=== PATIENT | male | born 1990 | race Caucasian/White ===

== ENCOUNTER 2018-03-01 17:13 | Emergency (ER) | payer OTHER ==
[2018-03-01 17:35] VITALS: BP 121/69
--- NOTE | 2018-03-01 18:33 | RAD ---
INDICATION: Left great toe pain COMPARISON: None. TECHNIQUE: 3 views of the left foot were obtained. FINDINGS: The adequately corticated bones are properly aligned. Joint spaces appear maintained. No fracture, dislocation or focal bony abnormality is seen. IMPRESSION: Normal radiograph of the left foot. If the patient's symptoms persist, follow-up imaging is recommended.
--- NOTE | 2018-03-01 20:08 | ED ---
Lower Extremity - HPI Summary HPI Summary: 27M male presents with left foot today. He states he was stepping off foot and felt a pop in his left great toe. He states he has pain with ambulation now. He is able to fully move his toe. He denies any numbness tingling. Denies any previous injury to the area. He has been taking ibuprofen for the pain. pain is worst with ambulation. he denies any previous injury to the area. no ankle pain or other injury. - History of Current Complaint Chief Complaint: EDExtremityLower Stated Complaint: LT FOOT INJURY Time Seen by Provider: 03/01/18 19:39 Pain Intensity: 8 - Allergies/Home Medications Allergies/Adverse Reactions: Allergies Allergy/AdvReac Type Severity Reaction Status Date / Time No Known Allergies Allergy Verified 05/29/16 19:52 Home Medications: Home Medications NK [No Home Medications Reported] 03/01/18 [History Confirmed 03/01/18] PMH/Surg Hx/FS Hx/Imm Hx Endocrine/Hematology History: Denies: Hx Anticoagulant Therapy, Hx Diabetes, Hx Thyroid Disease Cardiovascular History: Denies: Hx Congestive Heart Failure, Hx Deep Vein Thrombosis, Hx Hypertension , Hx Myocardial Infarction, Hx Pacemaker/ICD Respiratory History: Denies: Hx Asthma, Hx Chronic Obstructive Pulmonary Disease (COPD), Hx Lung Cancer, Hx Pneumonia, Hx Pulmonary Embolism GI History: Denies: Hx Gall Bladder Disease, Hx Gastrointestinal Bleed, Hx Ulcer, Hx Urosepsis History: Denies: Hx Kidney Stones, Hx Renal Disease Neurological History: Denies: Hx Dementia, Hx Migraine, Hx Seizures, Hx Transient Ischemic Attacks (TIA) Psychiatric History: Denies: Hx Anxiety, Hx Depression, Hx Schizophrenia, Hx Bipolar Disorder Infectious Disease History: No Infectious Disease History: Denies: Traveled Outside the [place] in Last 30 Days - Family History Known Family History: Positive: Diabetes Negative: Cardiac Disease, Hypertension - Social History Alcohol Use: Occasionally Substance Use Type: Reports: Marijuana Smoking Status (MU): Current Every Day Smoker Type: Cigarettes Amount Used/How Often: 1/2 PPD Review of Systems Negative: Fever Negative: Chest Pain Negative: Shortness Of Breath Positive: Myalgia - left great toe All Other Systems Reviewed And Are Negative: Yes Physical Exam Triage Information Reviewed: Yes Vital Signs On Initial Exam: Initial Vitals Temp Pulse Resp BP Pulse Ox 99.1 F 80 15 121/69 99 03/01/18 17:31 03/01/18 17:31 03/01/18 17:31 03/01/18 17:31 03/01/18 17:31 Vital Signs Reviewed: Yes Appearance: Positive: Well-Appearing Skin: Positive: Warm, Dry Head/Face: Positive: Normal Head/Face Inspection Eyes: Positive: Normal, Conjunctiva Clear Respiratory/Lung Sounds: Positive: Clear to Auscultation, Breath Sounds Present Cardiovascular: Positive: Normal, RRR Musculoskeletal: Positive: Strength/ROM Intact - LEFT foot, Other - Good pulses , tenderness over left great toe, cap refill less than 2 seconds, sensation grossly intact. Negative: Edema Left Neurological: Positive: Normal Psychiatric: Positive: Normal Diagnostics - Vital Signs Vital Signs Temp Pulse Resp BP Pulse Ox 03/01/18 17:31 99.1 F 80 15 121/69 99 - Laboratory Lab Statement: Any lab studies that have been ordered have been reviewed, and results considered in the medical decision making process. - Radiology foot Xray Interpretation: No Acute Changes Radiology Interpretation Completed By: Radiologist Lower Extremity Course/Dx - Course Course Of Treatment: 27M male presents with left foot today. He states he was stepping off foot and felt a pop in his left great toe. He states he has pain with ambulation now. He is able to fully move his toe. He denies any numbness tingling. Denies any previous injury to the area. He has been taking ibuprofen for the pain. pain is worst with ambulation. he denies any previous injury to the area. no ankle pain or other injury. On exam has tenderness over left great toe. Full range of motion. Neurovascular intact. X-ray normal. We'll treat as a sprain with rice. Patient understands agrees with plan. - Diagnoses Differential Diagnosis/HQI/PQRI: Positive: Fracture (Closed), Sprain, Strain Provider Diagnoses: Left foot pain Discharge - Sign-Out/Discharge Documenting (check all that apply): Discharge/Admit/Transfer - Discharge Plan Condition: Good Disposition: HOME Patient Education Materials: Foot Sprain (ED) Referrals: No Primary Care Phys,NOPCP [Primary Care Provider] - [facility] [Outside] Additional Instructions: Wear hard sole shoes Ice, elevate Take Tylenol or ibuprofen for pain every 6 hours as needed Follow up with primary if no improvement Return to ED if develop or any new or worsening symptoms - Billing Disposition and Condition Condition: GOOD Disposition: HOME
== END 2018-03-01 21:00 | disposition home or self-care (01) ==
LOC: ED 17:13
DX: M79.672 Pain in left foot (principal); F17.210 Nicotine dependence, cigarettes, uncomplicated
CPT/HCPCS: 99282

== ENCOUNTER 2019-02-25 20:09 | Emergency (ER) | payer OTHER ==
[2019-02-25 20:21] VITALS: BP 106/70
[2019-02-25] MEDS ORDERED: Acetaminophen TAB* 325 MG PO ONE (20:22)
--- NOTE | 2019-02-25 20:23 | UC ---
Respiratory Complaint HPI - HPI Summary HPI Summary: 28 yo male presents with cough. He tells me that about a month ago he developed a dry cough and decreased appetite with some nausea. These symptoms did not improve. About a week ago he developed a fever of around 100F and felt fatigued with worsening cough and body aches. He was taking ibuprofen and fever reduced and he felt better for a day or two, but yesterday and today his fever "felt very high" and he feels short of breath. He is a daily smoker. Denies any PMHx and does not take any medications. Notes a 10lb unintentional weight loss over the last month - History of Current Complaint Chief Complaint: UCGeneralIllness Stated Complaint: resp complaint Time Seen by Provider: 02/25/19 20:23 Hx Obtained From: Patient Severity Initially: Mild Severity Currently: Moderate Pain Intensity: 5 Pain Scale Used: 0-10 Numeric Character: Cough: Productive - Allergies/Home Medications Allergies/Adverse Reactions: Allergies Allergy/AdvReac Type Severity Reaction Status Date / Time No Known Allergies Allergy Verified 02/25/19 20:13 Home Medications: Home Medications Ibuprofen 400 mg PO ONCE PRN 02/25/19 [History Confirmed 02/25/19] PMH/Surg Hx/FS Hx/Imm Hx - Additional Past Medical History Additional PMH: None Other History Of: Negative For: HIV, Hepatitis B, Hepatitis C, Anticoagulant Therapy - Surgical History Surgical History: None - Family History Known Family History: Positive: Diabetes Negative: Cardiac Disease, Hypertension - Social History Lives: With Family Alcohol Use: None Substance Use Type: Marijuana Substance Use Comment - Amount & Last Used: occassionally- this am Smoking Status (MU): Current Every Day Smoker Type: Cigarettes Amount Used/How Often: 1/2 PPD Household Exposure Type: Cigarettes Review of Systems All Other Systems Reviewed And Are Negative: Yes Constitutional: Positive: Fever, Chills, Fatigue, Other - Body aches Skin: Positive: Negative Eyes: Positive: Negative ENT: Positive: Sore Throat Respiratory: Positive: Shortness Of Breath, Cough Cardiovascular: Positive: Negative Gastrointestinal: Positive: Nausea Genitourinary: Positive: Negative Neurovascular: Positive: Negative Neurological: Positive: Negative Psychological: Positive: Negative Physical Exam - Summary Physical Exam Summary: GENERAL: Ill appearing. Thin. Coughing throughout exam. SKIN: No rashes, sores, lesions, or open wounds. HEENT: Head: AT/NC Eyes: EOM intact. Conjunctiva clear without inflammation or discharge. Ears: Hearing grossly normal. TMs intact, no bulging, erythema, or edema. Nose: Nasal mucosa pink and moist. NTTP maxillary and frontal sinus. Throat: Posterior oropharynx without exudates, erythema, or tonsillar enlargement. Uvula midline. NECK: Supple. Nontender. No lymphadenopathy. CHEST: CTAB. No r/r/w. No accessory muscle use. Breathing comfortably and in no distress. CV: Tachycardic. Without m/r/g. Pulses intact. Cap refill <2seconds ABDOMEN: Soft. NTTP. No distention or guarding. No CVA tenderness. Bowel sounds present NEURO: Alert. PSYCH: Age appropriate behavior. Triage Information Reviewed: Yes Vital Signs: Initial Vital Signs Temp 103.3 F 02/25/19 20:14 Pulse 98 02/25/19 20:14 Resp 20 02/25/19 20:14 BP 106/70 02/25/19 20:14 Pulse Ox 98 02/25/19 20:14 Vital Signs Reviewed: Yes Respiratory Course/Dx - Course Course Of Treatment: POC strep and flu negative. CXR: No radiologist reading after 1800, therefore wet read by myself is negative for PNA. Pt was given tylenol 975mg po and zofran in the clinic. His temp remained at 102.5F and he is visibly shaking with chills and sweats. His exam is unremarkable. He was unable to produce a urine sample and admits he hasn't been urinating much recently. He is mildly tachycardic and mildly hypotensive. I am unsure the cause of his symptoms, but am most concerned for sepsis with unknown origin at this time. I discussed this with the pt and his brother and recommended transfer to the ED via ambulance with IVF, but pt declined and requested that his brother drive him. I called Iftikhar HAYNES in the ED to notify the ED of pt's condition and pending arrival. - Differential Dx/Diagnosis Provider Diagnosis: Fever, Cough, Fatigue, Nausea, Weight loss Discharge - Sign-Out/Discharge Documenting (check all that apply): Patient Departure All imaging exams completed and their final reports reviewed: No - Discharge Plan Condition: Fair Disposition: HOME-RECOMMEND TO ED Referrals: Travis Cano MD [Primary Care Provider] - Additional Instructions: Please go directly to the emergency room for your fever and symptoms without an identifiable cause. - Billing Disposition and Condition Condition: FAIR Disposition: Home-Recommend to ED
[2019-02-25] MEDS ORDERED: Ondansetron ODT TAB* 4 MG SL ONE (20:30)
[2019-02-25 20:58] LABS: Influenza A Molecular NEGATIVE (Negative); Influenza B Molecular NEGATIVE (Negative)
--- NOTE | 2019-02-26 14:15 | UC ---
- Progress Note Progress Note: RADIOLOGY REPORT REVIEWED. NO ACTIVE CARDIOPULMONARY DISEASE. NO CHANGE IN MGMT. Course/Dx - Diagnoses Provider Diagnoses: Fever, Cough, Fatigue, Nausea, Weight loss Discharge - Sign-Out/Discharge Documenting (check all that apply): Post-Discharge Follow Up All imaging exams completed and their final reports reviewed: Yes - Discharge Plan Condition: Fair Disposition: HOME-RECOMMEND TO ED Referrals: Travis Cano MD [Primary Care Provider] - Additional Instructions: Please go directly to the emergency room for your fever and symptoms without an identifiable cause. - Billing Disposition and Condition Condition: FAIR Disposition: Home-Recommend to ED
== END 2019-02-25 21:00 | disposition home health service (06) ==
LOC: UCEAST 20:09
DX: R50.9 Fever, unspecified (principal); R05 Cough; R53.83 Other fatigue; R11.0 Nausea; R63.4 Abnormal weight loss; R06.02 Shortness of breath; F17.210 Nicotine dependence, cigarettes, uncomplicated
CPT/HCPCS: 71046; 87651; 99202; A9270-GY; G0463

== ENCOUNTER 2019-02-25 21:19 | Observation (INO) | payer OTHER ==
[2019-02-25 21:57] LABS: Rapid Strep Molecular Negative (Negative)
[2019-02-25 22:04] LABS: Influenza A Molecular NEGATIVE (Negative); Influenza B Molecular NEGATIVE (Negative)
--- NOTE | 2019-02-25 22:13 | ED ---
Complex/Multi-Sys Presentation - HPI Summary HPI Summary: This patient is a 28 year old M presenting to ED accompanied by family with a chief complaint of CP and SOB since [employer]. The patient rates the pain 5/10 in severity. Symptoms aggravated by deep breaths. Symptoms alleviated by nothing. Last took 3 Tylenol about 1 hour ago. Patient reports fever (103.5F tonight and 100F 1 week ago), N/V (x3 episodes), rhinorrhea, sore throat, and slight MARQUEZ. The patient has been having a cold for the last month. Patient denies diarrhea. - History Of Current Complaint Chief Complaint: EDFluSymptoms Time Seen by Provider: 02/25/19 22:04 Hx Obtained From: Patient Onset/Duration: Sudden Onset, Lasting Hours, Still Present Severity Initially: Moderate - 5/10 Aggravating Factor(s): deep breaths Alleviating Factor(s): nothing Associated Signs And Symptoms: Positive: Headache, SOB, Chest Pain, Nausea, Vomiting, Fever, Other - sore throat, rhinorrhea. Negative: Diarrhea - Allergies/Home Medications Allergies/Adverse Reactions: Allergies Allergy/AdvReac Type Severity Reaction Status Date / Time No Known Allergies Allergy Verified 02/25/19 22:55 PMH/Surg Hx/FS Hx/Imm Hx Endocrine/Hematology History: Denies: Hx Anticoagulant Therapy, Hx Diabetes, Hx Thyroid Disease Cardiovascular History: Denies: Hx Congestive Heart Failure, Hx Deep Vein Thrombosis, Hx Hypertension , Hx Myocardial Infarction, Hx Pacemaker/ICD Respiratory History: Denies: Hx Asthma, Hx Chronic Obstructive Pulmonary Disease (COPD), Hx Lung Cancer, Hx Pneumonia, Hx Pulmonary Embolism GI History: Denies: Hx Gall Bladder Disease, Hx Gastrointestinal Bleed, Hx Ulcer, Hx Urosepsis History: Denies: Hx Kidney Stones, Hx Renal Disease Neurological History: Denies: Hx Dementia, Hx Migraine, Hx Seizures, Hx Transient Ischemic Attacks (TIA) Psychiatric History: Denies: Hx Anxiety, Hx Depression, Hx Schizophrenia, Hx Bipolar Disorder Infectious Disease History: No Infectious Disease History: Denies: Traveled Outside the [place] in Last 30 Days - Family History Known Family History: Positive: Diabetes Negative: Cardiac Disease, Hypertension - Social History Alcohol Use: None Substance Use Type: Reports: Marijuana Substance Use Comment - Amount & Last Used: occassionally- this am Smoking Status (MU): Current Every Day Smoker Type: Cigarettes Amount Used/How Often: 1/2 PPD Review of Systems Positive: Fever Positive: Sore Throat, Other - rhinorrhea Positive: Chest Pain Positive: Shortness Of Breath Positive: Vomiting, Nausea. Negative: Diarrhea Positive: Headache All Other Systems Reviewed And Are Negative: Yes Physical Exam - Summary Physical Exam Summary: VITAL SIGNS: Reviewed. GENERAL: Patient is a well-developed and nourished MALE who is lying comfortable in the stretcher. Patient is not in any acute respiratory distress. HEAD AND FACE: No signs of trauma. No ecchymosis, hematomas or skull depressions. No sinus tenderness. EYES: PERRLA, EOMI x 2, No injected conjunctiva, no nystagmus. EARS: Hearing grossly intact. Ear canals and tympanic membranes are within normal limits. MOUTH: Oropharynx within normal limits. NECK: Supple, trachea is midline, no adenopathy, no JVD, no carotid bruit, no c- spine tenderness, neck with full ROM CHEST: Symmetric, no tenderness at palpation LUNGS: Clear to auscultation bilaterally. No wheezing or crackles. CVS: Regular rate and rhythm, S1 and S2 present, no murmurs or gallops appreciated. ABDOMEN: Soft, non-tender. No signs of distention. No rebound no guarding, and no masses palpated. Bowel sounds are normal. EXTREMITIES: FROM in all major joints, no edema, no cyanosis or clubbing. NEURO: Alert and oriented x 3. No acute neurological deficits. Speech is normal and follows commands. SKIN: Dry and warm Triage Information Reviewed: Yes Vital Signs On Initial Exam: Initial Vitals Temp Pulse Resp BP Pulse Ox 102.6 F 87 20 112/68 96 02/25/19 21:28 02/25/19 21:28 02/25/19 21:28 02/25/19 21:28 02/25/19 21:28 Vital Signs Reviewed: Yes Procedures - Lumbar Puncture spinal tap Position: Sitting Aseptic Technique: Local Anesthesia, Lidocaine - with epi Anesthesia Used: 2.0% Lido Spinal Needle Used: 20 Gauge Lumbar Puncture Note: L4-L5, 4 tubes of spinal fluid that was clear. Diagnostics - Vital Signs Vital Signs Temp Pulse Resp BP Pulse Ox 02/25/19 21:28 102.6 F 87 20 112/68 96 - Laboratory Lab Results: Lab Results 02/25/19 02/25/19 Range/Units 21:33 21:33 Influenza A (Rapid) Negative (Negative) Influenza B (Rapid) Negative (Negative) Group A Strep Rapid Negative (Negative) Result Diagrams: 02/26/19 03:35 02/26/19 03:35 Lab Statement: Any lab studies that have been ordered have been reviewed, and results considered in the medical decision making process. - Radiology CXR Radiology Interpretation Completed By: ED Physician Summary of Radiographic Findings: CXR done as an outpatient reveals no acute processes. - EKG 2203 Cardiac Rate: NL - 84 BPM EKG Rhythm: Sinus Rhythm Summary of EKG Findings: NSR at 84 BPM, normal axis, normal interval, and no ischemic changes. Re-Evaluation - Re-Evaluation First Eval Re-Evaluation Time: 23:25 Comment: Discussed results with the patient. Complex Multi-Symp Course/Dx Assessment/Plan: This patient is a 28 year old M presenting to ED accompanied by family with a chief complaint of CP and SOB since [employer]. CXR done as an outpatient reveals no acute processes. EKG reveals NSR at 84 BPM, normal axis, normal interval, and no ischemic changes. Spinal tap was done. In the ED course the patient was given Sodium Chloride IV, Reglan IV, Levaquin IV, Ibuprofen PO and Lidocaine INJ. Bloodwork, chemistries and serology obtained. Case discussed with Dr. Mccarthy, hospitalist, who accepted the patient for admission. The patient is agreeable with this plan. - Diagnoses Provider Diagnoses: Pneumonia - Physician Notifications Discussed Care Of Patient With: Claudia Mccarthy Time Discussed With Above Provider: 01:43 Instructed by Provider To: Admit As Inpatient Discharge - Sign-Out/Discharge Documenting (check all that apply): Patient Departure - admit Patient Received Moderate/Deep Sedation with Procedure: No - Discharge Plan Condition: Fair Disposition: ADMITTED TO [facility] - Billing Disposition and Condition Condition: FAIR Disposition: Admitted to [facility] - Attestation Statements Document Initiated by Scribe: Yes Documenting Scribe: Simón Phillips Provider For Whom Scribe is Documenting (Include Credential): Fawn Vivar MD Scribe Attestation: Simón Marie, scribed for Fawn Vivar MD on 02/26/19 at 0638. Scribe Documentation Reviewed: Yes Provider Attestation: The documentation as recorded by the scribe, Simón Phillips accurately reflects the service I personally performed and the decisions made by me, Fawn Vivar MD Status of Dami Document: Viewed
[2019-02-25] MEDS ORDERED: NS 0.9% 1000 ML** 2,000 ML IV ONE (22:17)
[2019-02-25] MEDS ORDERED: Ibuprofen TAB* 600 MG PO ONE (22:18)
[2019-02-25] MEDS ORDERED: Metoclopramide IV* 5 MG/ML 2 ML VIAL IV SLOW PU ONE (22:18)
[2019-02-25 22:52] LABS: Hematocrit 43 % (42-52); Hemoglobin 14.6 g/dL (14.0-18.0); Mean Corpuscular HGB Conc 34 g/dL (31-36); Mean Corpuscular Hemoglobin 30 pg (27-31); Mean Corpuscular Volume 86 fL (80-94); Red Blood Count 4.95 10^6 /uL (4.18-5.48); Red Cell Distribution Width 12 % (10.5-15); White Blood Count 18.6 10^3/uL (3.5-10.8)
[2019-02-25 22:53] LABS: ABS Lymphocytes 0.4 10^3/ul (1.0-4.8); ABS Monocytes 0.4 10^3/ul (0-0.8); ABS Neutrophils 17.7 10^3/ul (1.5-7.7); ABS Nucleated RBC 0.1 10^3/ul; Eosinophil % 0.2 %; Lymphocyte % 2.4 %; Mean Platelet Volume 8.1 fL (7.4-10.4); Nucleated Red Blood Cells % 0.5; Platelet Count 282 10^3/uL (150-450)
[2019-02-25 22:57] LABS: Activated Partial Thrombo Time 29.3 seconds (26.0-36.3); INR 1.12 (0.82-1.09)
[2019-02-25 23:05] LABS: Albumin 4.3 g/dL (3.2-5.2); Albumin/Globulin Ratio 1.2 (1-3); BUN/Creatinine Ratio 10.6 (8-20); C Reactive Protein 14.55 mg/L (<8.01); Calcium 9.4 mg/dL (8.6-10.3); EGFR African American 93.5 (>60); EGFR Non-African American 77.3 (>60); Globulin 3.6 g/dL (2-4); Potassium 3.8 mmol/L (3.5-5.0); Total Bilirubin 0.6 mg/dL (0.2-1.0); Total Protein 7.9 g/dL (6.4-8.9)
[2019-02-25] MEDS ORDERED: NS 0.9% 1000 ML** 1,000 ML IV ONE (23:31)
[2019-02-25] MEDS ORDERED: Iohexol 300* (CONTRAST) 10 ML SDV IV ONE (23:37)
[2019-02-25] MEDS ORDERED: Lidocaine 2% EPI 1:200000 MPF*10-20 ML VIAL ONE (23:37)
[2019-02-25] MEDS ORDERED: Lidocaine 2% EPI 1:200000 MPF*10-20 ML VIAL INJ ONE (23:39)
[2019-02-25 23:58] LABS: Body Fluid Source Cerebral Spinal
[2019-02-26 00:35] LABS: CSF Glucose 61 mg/dL (40-70)
[2019-02-26] MEDS ORDERED: Levofloxacin 750 MG IVPREMIX(* 750 MG/150 ML BAG IVPB ONE (01:40)
[2019-02-26] MEDS ORDERED: Ketorolac INJ* 30 MG/ML 1 ML VIAL IV PUSH ONE (03:09)
[2019-02-26] MEDS ORDERED: Nicotine PATCH 14 MG/24 HR* PATCH TRANSDERM ONE (03:13)
[2019-02-26] MEDS ORDERED: Ondansetron INJ* 2 MG/ML VIAL IV ONE (03:19)
[2019-02-26] MEDS ORDERED: Morphine 4 MG/ML VIAL (1 ml) 4 MG/ML VIAL IV ONE (03:19)
[2019-02-26] MEDS ORDERED: Benzonatate CAP* 100 MG PO PRN (03:33)
[2019-02-26 03:35] LABS: Troponin I 0.01 ng/mL (<0.04)
[2019-02-26] MEDS ORDERED: Al Hydrox/Mg Hydrox/Simet LIQ* 30 ML UDC PO PRN (04:06)
[2019-02-26] MEDS ORDERED: oxyCODONE/Acetamin 5/325 MG* TAB PO PRN (04:06)
[2019-02-26] MEDS ORDERED: Docusate CAP* 100 MG PO PRN (04:06)
[2019-02-26] MEDS ORDERED: Senna TAB PO PRN (04:06)
[2019-02-26] MEDS ORDERED: Acetaminophen TAB* 325 MG PO PRN (04:06)
[2019-02-26] MEDS ORDERED: Ondansetron INJ* 2 MG/ML VIAL IV PRN (04:06)
[2019-02-26 04:42] LABS: Hematocrit 41 % (42-52); Hemoglobin 13.8 g/dL (14.0-18.0); Mean Corpuscular HGB Conc 34 g/dL (31-36); Mean Corpuscular Hemoglobin 30 pg (27-31); Mean Corpuscular Volume 88 fL (80-94); Mean Platelet Volume 8.8 fL (7.4-10.4); Platelet Count 263 10^3/uL (150-450); Red Blood Count 4.63 10^6 /uL (4.18-5.48); Red Cell Distribution Width 13 % (10.5-15); White Blood Count 25.2 10^3/uL (3.5-10.8)
[2019-02-26 04:52] LABS: BUN/Creatinine Ratio 11.7 (8-20); Calcium 8.1 mg/dL (8.6-10.3); Potassium 3.9 mmol/L (3.5-5.0)
[2019-02-26 04:54] LABS: Erythrocyte Sed Rate 30 mm/Hr (0-14)
[2019-02-26] MEDS: Nicotine PATCH 14 MG/24 HR* PATCH TRANSDERM SCH ×2 (05:00→08:25)
--- NOTE | 2019-02-26 05:13 | HP ---
CC: Dr. Cano * HISTORY AND PHYSICAL: DATE OF ADMISSION: 02/26/19 TIME OF EVALUATION: 0300 PRIMARY CARE PHYSICIAN: Dr. Cano. CHIEF COMPLAINT: Cough and shortness of breath with chest pain. HISTORY OF PRESENT ILLNESS: This is a 28-year-old male with an unremarkable past medical history, who presented to the emergency room from urgent care for concern for sepsis. The patient states he has had a productive cough over the past month. Today, he had high fever, shortness of breath, and left-sided chest pain. He states last week he had a low-grade temp around 100 and then it resolved on its own. He was nauseous and vomiting earlier today. He denies any diarrhea. No abdominal pain or urinary symptoms. He has an exposure to sick contacts. He has several nephews who live with him that have been sick with cold. He has a chronic lower extremity rash on the left leg that is not painful or itchy. He denies any long car rides or plane rides. No headache. He does have some congestion and sore throat, otherwise review of systems is negative. In the emergency room, the patient had labs and imaging, was given 3 L of normal saline, Levaquin 750 mg, Motrin 600 mg, and referred to the hospitalist service for further evaluation. The patient also denies any night sweats. He admits to a 10-pound weight loss over the past month due to anorexia. PAST MEDICAL HISTORY: 1. Tobacco use. 2. Marijuana use. MEDICATIONS: None. ALLERGIES: No known drug allergies. FAMILY HISTORY: Parents are alive and healthy. 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 He lives with his parents, 2 siblings, and several nieces and nephews. He admits to smoking, half a pack per day for the past few years. He also uses marijuana daily. No other illicit drug use. No recent alcohol use. CODE STATUS: Full code. REVIEW OF SYSTEMS: A 14-point review of systems as mentioned in the HPI, otherwise negative. PHYSICAL EXAMINATION GENERAL: Mildly ill appearing and uncomfortable due to left-sided chest pain. VITAL SIGNS: T-Max was 103.1, pulse rate 76, respiratory rate 26, oxygen saturation 97% on room air, blood pressure 97/50. HEENT: Head: Normocephalic. Pupils equal and reactive. Mild conjunctival injection. Oropharynx: Mucous membranes dry. Lips are dry. No significant posterior erythema or exudates. NECK: Supple. No adenopathy. RESPIRATORY: Diminished breath sounds. Poor aeration. No wheezes, rhonchi, rales or increased work of breathing. CARDIAC: Normal sinus with a systolic murmur heard throughout. ABDOMEN: Positive bowel sounds. Soft, nontender, nondistended. EXTREMITIES: No clubbing, cyanosis, or edema. +2 DP. NEUROLOGIC: Alert and oriented x3. No gross focal neurologic deficits. LABORATORY DATA: White count 18.6, hemoglobin 14.6, hematocrit 43, platelets 282. INR is 1.12. Sodium 136, potassium 3.8, chloride 103, bicarb 21, BUN 12, creatinine 1.13. Lactic 0.8. CRP is 14.55. LP of 0 white cells, glucose 61, protein 28. Negative mono. Negative flu. Negative group B strep. RADIOGRAPHIC STUDIES: Chest, abdomen and pelvis CT: No acute findings on the abdomen or pelvis. Left lower lobe consolidation likely representing pneumonia , suggest radiographic followup to ensure resolution. Tiny ground-glass foci in right lower lobe may represent additional foci of infection versus inflammation. A 3-mm right upper lobe nodule. EKG: Normal sinus rhythm. ASSESSMENT: This is a 28-year-old male with an unremarkable past medical history, who presents to the emergency room from urgent care for persistent cough, now fever, shortness of breath, and chest pain. The patient with left lower lobe pneumonia on imaging. CRP is not significantly elevated but he does have an elevated white count. I am concerned also for pulmonary embolism due to how uncomfortable he is with left-sided pleuritic pain that may be contributed by pneumonia, but the pain does seem out of proportion to having pneumonia. I am adding on troponin and D-dimer. If either of these are elevated, we will get a CTA of the chest and anticoagulate him if it is positive. We will continue him on Levaquin, obtain a sputum culture, continue IV fluids. We will check a sed rate and do a trial of albuterol nebs to help with the cough. No active wheezing. Chronic medical problems. Tobacco use, placed him on a nicotine patch. FEN: Regular diet and IV fluids. DVT prophylaxis: Awaiting workup for PE. If negative, the patient is low risk , we will encourage ambulation. Code status: Full code. PATIENT TIME: Greater than 45 minutes was spent doing the history and physical , more than half the time spent in direct patient contact. [id number]/[facility] #: [id number] LOUISA
[2019-02-26 05:16] LABS: ABS Lymphocytes 0.7 10^3/ul (1.0-4.8); ABS Monocytes 0.2 10^3/ul (0-0.8); ABS Neutrophils 24.2 10^3/ul (1.5-7.7); Eosinophil % 0.1 %; Lymphocyte % 2.7 %
[2019-02-26] MEDS: Morphine INJ* 2 MG/ML 1 ML SYRINGE (TWO MG - NEW SYRINGE VERSION) IV PRN ×3 (05:42→17:55)
[2019-02-26] MEDS: Lactated Ringers 1000 ML Bag* 1,000 ML IV SCH ×3 (05:45→21:52)
[2019-02-26] MEDS: Ketorolac INJ* 15 MG/ML 1 ML VIAL IV PUSH PRN ×2 (08:26→20:24)
--- NOTE | 2019-02-26 20:12 | PN ---
Subjective Date of Service: 02/26/19 Interval History: Patient reports he continues to feel fatigued, has left sided chest pain with cough, and continues to cough. Denies sob, wheezing, nausea, vomiting, diarrhea. He reports he has had this cough for about one month prior to presentation to ED. In addition he noted a low grade fever 2 wks ago. No sick contact. Does smoke and work in factory. Does use marijuana. Objective Active Medications: Acetaminophen (Tylenol Tab*) 650 mg PO Q4H PRN PRN Reason: FEVER/PAIN Al Hydrox/Mg Hydrox/Simethicone (Maalox Plus*) 30 ml PO Q6H PRN PRN Reason: INDIGESTION Benzonatate (Tessalon Cap*) 200 mg PO TID PRN PRN Reason: COUGH Last Admin: 02/26/19 12:04 Dose: 200 mg Docusate Sodium (Colace Cap*) 100 mg PO BID PRN PRN Reason: CONSTIPATION Lactated Ringer's (Lactated Ringers 1000 Ml Bag*) 1,000 mls @ 150 mls/hr IV PER RATE [facility] Last Admin: 02/26/19 12:04 Dose: 150 mls/hr Levofloxacin/Dextrose (Levaquin 750 Mg Ivpremix(*)) 750 mg in 150 mls @ 100 mls /hr IVPB Q24H [facility] Ketorolac Tromethamine (Toradol Inj*) 15 mg IV PUSH Q6H PRN PRN Reason: PAIN Last Admin: 02/26/19 08:26 Dose: 15 mg Morphine Sulfate (Morphine Inj (Syringe))*) 2 mg IV Q4H PRN PRN Reason: PAIN - MILD Last Admin: 02/26/19 17:55 Dose: 2 mg Nicotine (Nicotine Patch 14 Mg/24 Hr*) 1 patch TRANSDERM DAILY [facility] Last Admin: 02/26/19 08:25 Dose: 1 patch Ondansetron HCl (Zofran Inj*) 4 mg IV Q4H PRN PRN Reason: NAUSEA/VOMITING Oxycodone/Acetaminophen (Percocet 5/325 Tab*) 1 tab PO Q4H PRN PRN Reason: Pain Pharmacy Profile Note (Nicotine Patch Removal Note*) 1 note FOLLOW UP 2100 [facility] Senna (Senokot Tab*) 1 tab PO BID PRN PRN Reason: CONSTIPATION Vital Signs - 8 hr 02/26/19 02/26/19 02/26/19 14:58 17:00 17:55 Temperature 98.6 F Pulse Rate 86 Respiratory 16 20 18 Rate Blood Pressure (mmHg) O2 Sat by Pulse 100 Oximetry 02/26/19 18:05 Temperature Pulse Rate Respiratory Rate Blood Pressure 128/68 (mmHg) O2 Sat by Pulse Oximetry Oxygen Devices in Use Now: None Appearance: Comfortable, NAD Ears/Nose/Mouth/Throat: Clear Oropharnyx, Mucous Membranes Moist Neck: NL Appearance and Movements; NL JVP Respiratory: Symmetrical Chest Expansion and Respiratory Effort, Clear to Auscultation Cardiovascular: NL Sounds; No Murmurs; No JVD, RRR, No Edema Abdominal: NL Sounds; No Tenderness; No Distention Lymphatic: No Cervical Adenopathy Extremities: No Edema Skin: No Rash or Ulcers Neurological: Alert and Oriented x 3 Nutrition: Taking PO's Result Diagrams: 02/26/19 03:35 02/26/19 03:35 Additional Lab and Data: Lab Results 02/25/19 02/25/19 Range/Units 21:33 21:33 Influenza A (Rapid) Negative (Negative) Influenza B (Rapid) Negative (Negative) Group A Strep Rapid Negative (Negative) Laboratory Results - last 24 hr 02/25/19 02/25/19 02/25/19 21:33 21:33 22:18 WBC 18.6 H RBC 4.95 Hgb 14.6 Hct 43 MCV 86 MCH 30 MCHC 34 RDW 12 Plt Count 282 MPV 8.1 Neut % (Auto) 95.1 Lymph % (Auto) 2.4 Page % (Auto) 2.2 Eos % (Auto) 0.2 Baso % (Auto) 0.1 Absolute Neuts (auto) 17.7 H Absolute Lymphs (auto) 0.4 L Absolute Monos (auto) 0.4 Absolute Eos (auto) 0.0 Absolute Basos (auto) 0.0 Absolute Nucleated RBC 0.1 Nucleated RBC % 0.5 ESR 30 H INR (Anticoag Therapy) APTT D-Dimer, Quantitative Sodium Potassium Chloride Carbon Dioxide Anion Gap BUN Creatinine Est GFR ( Amer) Est GFR (Non-Af Amer) BUN/Creatinine Ratio Glucose Lactic Acid Calcium Total Bilirubin AST ALT Alkaline Phosphatase Troponin I C-Reactive Protein Total Protein Albumin Globulin Albumin/Globulin Ratio Fluid Source Fluid Volume Fluid Color Fluid Appearance Fluid WBC Fluid RBC Fluid Tot Cell Count CSF Cell Count Tube # CSF Glucose CSF Total Protein Monoscreen Negative Influenza A (Rapid) Negative Influenza B (Rapid) Negative Group A Strep Rapid Negative 02/25/19 02/25/19 02/25/19 22:18 22:18 22:18 WBC RBC Hgb Hct MCV MCH MCHC RDW Plt Count MPV Neut % (Auto) Lymph % (Auto) Page % (Auto) Eos % (Auto) Baso % (Auto) Absolute Neuts (auto) Absolute Lymphs (auto) Absolute Monos (auto) Absolute Eos (auto) Absolute Basos (auto) Absolute Nucleated RBC Nucleated RBC % ESR INR (Anticoag Therapy) 1.12 H APTT 29.3 D-Dimer, Quantitative Sodium 136 Potassium 3.8 Chloride 103 Carbon Dioxide 21 L Anion Gap 12 H BUN 12 Creatinine 1.13 Est GFR ( Amer) 93.5 Est GFR (Non-Af Amer) 77.3 BUN/Creatinine Ratio 10.6 Glucose 92 Lactic Acid 0.8 Calcium 9.4 Total Bilirubin 0.60 AST 15 ALT 10 Alkaline Phosphatase 71 Troponin I 0.01 C-Reactive Protein 14.55 H Total Protein 7.9 Albumin 4.3 Globulin 3.6 Albumin/Globulin Ratio 1.2 Fluid Source Fluid Volume Fluid Color Fluid Appearance Fluid WBC Fluid RBC Fluid Tot Cell Count CSF Cell Count Tube # CSF Glucose CSF Total Protein Monoscreen Influenza A (Rapid) Influenza B (Rapid) Group A Strep Rapid 02/25/19 02/25/19 02/26/19 23:48 23:48 03:35 WBC 25.2 H RBC 4.63 Hgb 13.8 L Hct 41 L MCV 88 MCH 30 MCHC 34 RDW 13 Plt Count 263 MPV 8.8 Neut % (Auto) 96.1 Lymph % (Auto) 2.7 Page % (Auto) 1.0 Eos % (Auto) 0.1 Baso % (Auto) 0.1 Absolute Neuts (auto) 24.2 H Absolute Lymphs (auto) 0.7 L Absolute Monos (auto) 0.2 Absolute Eos (auto) 0.0 Absolute Basos (auto) 0.0 Absolute Nucleated RBC 0.0 Nucleated RBC % 0.0 ESR INR (Anticoag Therapy) APTT D-Dimer, Quantitative Sodium Potassium Chloride Carbon Dioxide Anion Gap BUN Creatinine Est GFR ( Amer) Est GFR (Non-Af Amer) BUN/Creatinine Ratio Glucose Lactic Acid Calcium Total Bilirubin AST ALT Alkaline Phosphatase Troponin I C-Reactive Protein Total Protein Albumin Globulin Albumin/Globulin Ratio Fluid Source Cerebral spinal Fluid Volume 8 Fluid Color Colorless Fluid Appearance Clear Fluid WBC 0 Fluid RBC 0 Fluid Tot Cell Count CSF Cell Count Tube # 4 CSF Glucose 61 CSF Total Protein 28 Monoscreen Influenza A (Rapid) Influenza B (Rapid) Group A Strep Rapid 02/26/19 02/26/19 03:35 03:36 WBC RBC Hgb Hct MCV MCH MCHC RDW Plt Count MPV Neut % (Auto) Lymph % (Auto) Page % (Auto) Eos % (Auto) Baso % (Auto) Absolute Neuts (auto) Absolute Lymphs (auto) Absolute Monos (auto) Absolute Eos (auto) Absolute Basos (auto) Absolute Nucleated RBC Nucleated RBC % ESR INR (Anticoag Therapy) APTT D-Dimer, Quantitative < 200 Sodium 139 Potassium 3.9 Chloride 110 Carbon Dioxide 22 Anion Gap 7 BUN 12 Creatinine 1.03 Est GFR ( Amer) 104.0 Est GFR (Non-Af Amer) 86.0 BUN/Creatinine Ratio 11.7 Glucose 104 H Lactic Acid Calcium 8.1 L Total Bilirubin AST ALT Alkaline Phosphatase Troponin I C-Reactive Protein Total Protein Albumin Globulin Albumin/Globulin Ratio Fluid Source Fluid Volume Fluid Color Fluid Appearance Fluid WBC Fluid RBC Fluid Tot Cell Count CSF Cell Count Tube # CSF Glucose CSF Total Protein Monoscreen Influenza A (Rapid) Influenza B (Rapid) Group A Strep Rapid Microbiology and Other Data: Microbiology 02/25/19 23:48 CSF Gram Stain (Tube 3) - Final Cerebral Spinal Fluid CSF Culture - Preliminary No Growth Day 1 02/26/19 06:00 Gram Stain - Final Sputum Expectorated Assess/Plan/Problems-Billing Assessment: 28 yr old male with unremarkable past medication hx who was admitted for pneumonia - Patient Problems (1) Left-sided chest pain Comment: - Trop and DDimer negative. - Pain worse with cough. - Suspected secondary to cough and pneumonia. - Cont prn pain medications (2) Pneumonia Comment: - Left lower lobe consolidation - Cont Levaquin and IVF - Repeat imaging for resolution (3) Lung nodule Comment: - 3 mm lung nodule seen on right. Will need outpatient follow imaging as patient has risk factor due to smoking (4) Tobacco abuse Comment: - Discussed cessation - Cont nicotine patch (5) Marijuana abuse Comment: - Smokes marijuana daily - Discussed risk associated with lung disease (6) DVT prophylaxis Comment: - Ambulation encouraged Attending: Robin Dill
[2019-02-26] MEDS ORDERED: Nicotine Patch Removal NOTE FOLLOW UP SCH (21:00)
[2019-02-26 21:36] LABS: Urine Appearance Clear; Urine Bilirubin Negative (Negative); Urine Blood Negative (Negative); Urine Color Yellow; Urine Glucose Negative (Negative); Urine Ketones Negative (Negative); Urine Nitrite Negative (Negative); Urine Protein Negative (Negative); Urine Specific Gravity 1.004 (1.010-1.030); Urine Urobilinogen Negative (Negative)
[2019-02-27] MEDS ORDERED: Levofloxacin 750 MG IVPREMIX(* 750 MG/150 ML BAG IVPB SCH (03:00)
[2019-02-27 07:23] LABS: ABS Eosinophils 0.1 10^3/ul (0-0.6); ABS Lymphocytes 1.1 10^3/ul (1.0-4.8); ABS Monocytes 0.7 10^3/ul (0-0.8); ABS Neutrophils 19.5 10^3/ul (1.5-7.7); Eosinophil % 0.5 %; Hematocrit 35 % (42-52); Hemoglobin 12.2 g/dL (14.0-18.0); Mean Corpuscular HGB Conc 35 g/dL (31-36); Mean Corpuscular Hemoglobin 30 pg (27-31); Mean Corpuscular Volume 86 fL (80-94); Mean Platelet Volume 8.6 fL (7.4-10.4); Platelet Count 203 10^3/uL (150-450); Red Blood Count 4.08 10^6 /uL (4.18-5.48); Red Cell Distribution Width 13 % (10.5-15); White Blood Count 21.4 10^3/uL (3.5-10.8)
[2019-02-27] MEDS: Lactated Ringers 1000 ML Bag* 1,000 ML IV SCH (07:40)
[2019-02-27] MEDS: Nicotine PATCH 14 MG/24 HR* PATCH TRANSDERM SCH (08:13)
[2019-02-27 13:31] VITALS: BP 110/67
[2019-02-27 18:13] LABS: HSV 1 PCR, CSF Negative (Negative); HSV 2 PCR, CSF Negative (Negative)
[2019-02-27 21:53] LABS: B. garinii/B. afzellii PCR Negative (Negative); Lyme Disease Source CSF
--- NOTE | 2019-02-27 23:00 | DS ---
CC: Dr. Dill; Dr. Cano* DISCHARGE SUMMARY: DATE OF ADMISSION: 02/26/19 DATE OF DISCHARGE: 02/27/19 PRIMARY CARE PROVIDER: Dr. Cano. MY ATTENDING FOR TODAY: Dr. Dill* (dictated by Jess Mcclendon NP) . HOSPITAL COURSE: Please refer to admitting H and P by Dr. Claudia Mccarthy on 06/09, but in short, Mr. Cowart is a 28-year-old male patient with no reported medical history, who went to the emergency department after being referred from Urgent Care for a possibility of sepsis. In the emergency department, imaging did show that the patient had a pneumonia in the left lower lobe. The patient does have a history of tobacco abuse. He was febrile and also was reporting some cough, left-sided chest pain, and shortness of breath. The patient was ruled out with a CTA for PE which was negative. He was under sepsis protocol, given 3 L of normal saline, was started on Levaquin, given Motrin for fever, and then was admitted to observation. The patient also stated he had some weight loss over the past month. Reportedly he had some loss of appetite and had reported that he does have also some environmental exposure at his job and again does have a daily tobacco habit at this time. The patient responded very well to IV hydration and antibiotics. Upon examination today, the patient states he does have persistent cough but denied any fever, fatigue, or chills. Denies any acute shortness of breath. No chest pain. He does have some pleuritic pain with cough. However, it has improved from his admission. He denies any nausea or vomiting. No abdominal pain, no urinary complaints. No arthralgias or myalgias. No further constitutional complaints. PHYSICAL EXAMINATION: Today reveals a well-appearing young man in no acute distress. His vital signs are, blood pressure 110/67, heart rate 71, respiratory rate 20, O2 saturation 97% on room air with a temperature of 98.1. HEENT: The patient is atraumatic, normocephalic. PERRLA. Nonicteric sclerae. Oral mucosa is moist. No erythema noted to the oropharynx. Tongue is midline. Neck is supple, nontender. No JVD noted. No carotid bruits auscultated. Cardiovascular: S1, S2 present. No murmurs, gallops, or rubs noted. Lungs are clear throughout the lung lópez bilaterally. He does have an area of some diminished lung sound in the left middle lobe, but otherwise there is no wheezing, rhonchi, or rales noted. He has good air entry bilaterally. Abdomen is soft, nontender, nondistended. Positive bowel sounds in all 4 quadrants. is deferred. Musculoskeletal: There is no clubbing, no cyanosis, and no edema. He has +2 distal pulses palpable, full range of motion, and steady gait. Gross motor and sensation are intact. Neurologic: Grossly intact with no focal deficits. Psychiatric: He is cooperative and appropriate. LABORATORY DATA: WBC is 21.4, down from 25.2. RBC is 4.08, hemoglobin 12.2, hematocrit 35, platelets 203. Sodium 139, potassium 3.9, chloride 110, BUN 12, creatinine 1.03, glucose 104, CRP 14.55. Troponin was negative at 0.01. Urinalysis was negative. Lumbar puncture showed clear cerebrospinal fluid which was colorless, 0 rbc's, 0 wbc's. Glucose 61, total protein 28. HSV-1 was negative. Herpes 2 DNA by PCR was also negative. Serology: [place] screen was negative. Influenza A and B both negative. Group A strep was negative. IMAGING: CT of the chest, abdomen, and pelvis: No acute findings in the abdomen or pelvis; however, the chest shows a left lower lobe consolidation likely representing pneumonia. Tiny ground glass foci in the lower lobe may represent additional foci of infection versus inflammation. A 3-mm right upper lobe nodule per Fleischner society criteria. If the patient has no risk factor such as smoking or cancer, no further workup is indicated. If they do have risk factors, followup CT is suggested in 1 year to assess stability. DISCHARGE DIAGNOSES: 1. Left lower lobe pneumonia. 2. History of current tobacco use. 3. Leukocytosis secondary to #1. 4. Systemic inflammatory response syndrome criteria, now resolved. DISCHARGE MEDICATIONS: Include: 1. Ibuprofen 400 mg q.6 hours as needed for fever or pain. 2. Mucinex 600 mg p.o. 2 times daily for 5 days. 3. Nicotine patch 14 to 21 mg 1 patch daily. 4. Levaquin 750 mg p.o. daily x6 more days. 5. Tessalon caps 200 mg p.o. 3 times a day as needed for cough. FOLLOWUP: The patient was instructed to follow up with Dr. Cano in the next week. The patient was put out of work until Sunday. If the patient is still feeling unwell and requires more time out of work, I explained to the patient he should see Dr. Cano in the office on Sunday for auscultation of his lungs and to ensure his symptoms are continuing to improve and to see if the patient needs any further treatment. The patient states that he will follow up with his primary care provider this week. I also explained to the patient that his cough may persist for several weeks and that I highly recommend he engage in smoking cessation. Also recommend because his job does have some environmental exposure and risk factors that he use a mask if he has any exposure to dust or any other particular matter during the time where he is recuperating from his pneumonia, or if he feels that he will be further exposed which may result in some other kind of pulmonary infection. The patient stated his understanding of these instructions at the time of this discharge. ACTIVITY: He should progress his activity as tolerated. DIET: Regular as tolerated. The patient was discharged to home in stable condition. All questions were answered. The patient stated his understanding of his discharge instructions, medications, and followup. TIME SPENT: Approximately 40 minutes interfacing with the patient, developing discharge plan of care. JESS MCCLENDON NP [id number]/[facility] #: [id number] [place]
== END 2019-02-27 14:10 | disposition home or self-care (01) ==
LOC: ED 21:19 → MED 02-26 04:06
PROVIDERS: ADMIT Pediatrics; ATTEND Internal Medicine
DX: J18.1 Lobar pneumonia, unspecified organism (principal); F17.210 Nicotine dependence, cigarettes, uncomplicated; D72.829 Elevated white blood cell count, unspecified; R65.10 Systemic inflammatory response syndrome (SIRS) of non-infectious origin without acute organ dysfunction; R51 Headache; R07.9 Chest pain, unspecified; J02.9 Acute pharyngitis, unspecified; F12.90 Cannabis use, unspecified, uncomplicated; R91.8 Other nonspecific abnormal finding of lung field
CPT/HCPCS: 36415; 62270; 71260; 74177; 80048; 80053; 81003; 82945; 83605; 84157; 84484; 85025; 85379; 85610; 85652; 85730; 86140; 86308; 86618; 87040; 87070; 87205; 87476; 87529; 87651; 87798; 87899; 89051; 93005; 96361; 96367; 96374; 96375; 96376; 99285; 99406; A9270-GY; G0378; J1885; J2270; J2405; J2765; Q9967